=== PATIENT | female | born 1945 | race Two or more races ===

== ENCOUNTER 2018-01-18 05:04 | Inpatient (IN) | payer MEDICARE, OTHER ==
[~2018-01-18] VITALS: Ht 182.9 cm; Wt 89.8 kg
[2018-01-18] VITALS (11 sets, daily range): BP systolic 129–169; BP diastolic 51–90
--- NOTE | 2018-01-18 05:25 | NUR ---
MS GANDHI ADMIN NOTE PT WAS ADMITTED FOR DAY SURGERY, LEFT TOTAL KNEE ARTHROPLASTY. PT AMBULATED TO FLOOR WITH STEADY GATE. CONSENTS TO BE SIGNED Addendum: 01/18/18 at 0656 by BEN PARRISH IV TO BE STARTED. PREOP ORDERS TO BE CARRIED OUT. PT IS A/O X4, ABLE TO MAKE NEEDS KNOWN. NO SIGNS OF SOB OR DISTRESS, BREATHING EVENLY AND UNLABORED ON RA. BP: 129/67 T:98.2 O2:97% HR:75. PT SCHEDULED FOR SURGERY AT 0630. WILL CONTINUE TO MONITOR PT
[2018-01-18] MEDS ORDERED: CELECOXIB 100 MG CAPSULE PO ONE (06:00)
[2018-01-18] MEDS ORDERED: ACETAMINOPHEN 325 MG TABLET PO ONE (06:00)
[2018-01-18] MEDS ORDERED: oxyCODONE HCL SR 10MG TAB.SR.12H PO ONE (06:00)
[2018-01-18] MEDS ORDERED: ANESTHESIA TRAY IN PYXIS 1 EA TRAY MC ONE (06:02)
[2018-01-18] MEDS ORDERED: KETOROLAC TROMETHAMINE INJ 30 MG/ML VIAL ONE (06:02)
[2018-01-18] MEDS ORDERED: BACITRACIN 50000 UNITS/VIAL ONE (06:03)
--- NOTE | 2018-01-18 06:18 | NUR ---
MS RN NOTE PT WAS TAKEN DOWN TO SURGERY. IV ACCESS ON RFA #22, CONSENTS WERE SIGNED, PREOP MEDS WERE GIVEN. WILL ENDORSE TO DAYSHIFT
[2018-01-18] MEDS ORDERED: MORPHINE SULFATE/PF 10 MG/10ML (1MG/ML) AMPUL ONE (06:23)
[2018-01-18] MEDS ORDERED: BUPIVACAINE MPF 0.75% 30 ML VIAL ONE (06:50)
[2018-01-18] MEDS ORDERED: LIDOCAINE 2% 50 ML MDV IJ ONE (06:52)
[2018-01-18] MEDS ORDERED: FENTANYL PF 100MCG/2ML AMPUL ONE (06:58)
[2018-01-18] MEDS ORDERED: MIDAZOLAM HCL 2 MG/2ML VIAL ONE (07:02)
--- NOTE | 2018-01-18 07:15 | NUR ---
RN NOTES PATIENT IS CURRENTLY IN OR FOR A PROCEDURE
[2018-01-18] MEDS ORDERED: ROCURONIUM BROMIDE 50 MG/5 ML ONE (07:51)
[2018-01-18] MEDS ORDERED: TRANEXAMIC ACID 3,000 MG in SODIUM CHLORIDE IRRIG SOLUTION 70 ML IR ONE (08:00)
[2018-01-18] MEDS ORDERED: HYDROCODONE/APAP 5/325MG 1 EACH TABLET PO PRN (09:30)
[2018-01-18] MEDS ORDERED: DULCOLAX 10 MG/SUPP.RECT RC PRN (09:30)
[2018-01-18] MEDS ORDERED: AMBIEN 5 MG TABLET PO PRN (09:30)
[2018-01-18] MEDS ORDERED: COLACE 250 MG CAPSULE PO PRN (09:30)
[2018-01-18] MEDS ORDERED: ZOFRAN 4mg/2ML IV PRN (09:30)
[2018-01-18] MEDS ORDERED: TYLENOL 650 MG TABLET PO PRN (09:30)
[2018-01-18] MEDS ORDERED: SENOKOT 8.6 MG TABLET PO PRN (09:30)
[2018-01-18] MEDS ORDERED: LABETALOL HCL IV 100MG VIAL ONE (09:42)
--- NOTE | 2018-01-18 10:15 | NUR ---
RN NOTES PATIENT A/OX3, VERBALLY RESPONSIVE, BREATHING EVEN AND UNLABORED, NO DISTRESS NOTED. LEFT LOWER EXTREMITY COVERED WITH GAUZE AT THIS TIME, NO S/SX OF BLEEDING AT THIS TIME. KEPT PATIENT COMFORTABLE, PATIENT DENIES PAIN AT THIS TIME. VITAL SIGNS WILL BE MONITORED. CALL LIGHT WITHIN REACH, WILL CONTINUE TO MONITOR.
--- NOTE | 2018-01-18 10:30 | NUR ---
RN NOTES PATIENT ALLOWED LIMITED ASSESSMENT DUE TO POST OP SURGERY OF LEFT KNEE. PER PATIENT, I JUST WANT TO REST RIGHT NOW. NO S/SX OF SKIN BREAKDOWN AT THIS TIME. WILL CONTINUE TO MONITOR.
[2018-01-18] MEDS: IV D5/0.45 NACL 1,000 ML IV PRN ×3 (10:38→21:28)
[2018-01-18] MEDS ORDERED: MENTHOL/CETYLPYRD (CEPACOL) 1 LOZ LOZENGE MM PRN (12:00)
[2018-01-18] MEDS ORDERED: HYDROMORPHONE MDV 30 MG in IV NS 0.9% 15 ML, PCA TOTAL VOLUME 1 BAG IV PRN ×3 (12:00)
[2018-01-18] MEDS ORDERED: MORPHINE SULFATE INJ 2 MG/ML DISP.SYRIN IV PRN (12:00)
[2018-01-18] MEDS ORDERED: HYDROCODONE/APAP 10/325MG 1 EA TABLET PO PRN (12:00)
--- NOTE | 2018-01-18 12:17 | NUR ---
RN NOTES PROJECT SAFETY MANAGER PUMP STARTED, VERIFIED BY 2 RN'S.
[2018-01-18] MEDS ORDERED: NALOXONE HCL 0.4 MG/ML AMPUL IV PRN (13:00)
--- NOTE | 2018-01-18 13:36 | NUR ---
RN NOTES PATIENT A/OX4, VERBALLY RESPONSIVE, PATIENT VERBALIZED UNDERSTANDING OF HOW TO USE THE AUTO POLISHER PUMP, AUTO POLISHER PUMP CHECKED AT THIS TIME WITH 0 DOSE GIVEN, PER PATIENT, I DON'T NEED IT RIGHT NOW, I'M NOT IN PAIN. O2 SAT MONITORED CONTINUOUSLY, NO RESPIRATORY DISTRESS NOTED. WILL CONTINUE TO MONITOR.
[2018-01-18] MEDS ORDERED: METH2.5T PO (14:53)
[2018-01-18] MEDS ORDERED: WARF1TAB86 PO (14:53)
[2018-01-18] MEDS ORDERED: FOLI1TAB16 PO (14:53)
[2018-01-18] MEDS ORDERED: LISI10TA5 PO (14:53)
[2018-01-18] MEDS ORDERED: DIGO250T PO (14:53)
[2018-01-18] MEDS ORDERED: BUPR-51 PO (14:53)
[2018-01-18] MEDS ORDERED: GLYB1TAB2 PO (14:53)
[2018-01-18] MEDS ORDERED: ATEN25TA PO (14:53)
[2018-01-18] MEDS ORDERED: PRAV20TA4 PO (14:53)
[2018-01-18] MEDS ORDERED: MAGNESIUM HYDROXIDE 30 ML UDC PO PRN (15:00)
[2018-01-18] MEDS ORDERED: PROMETHAZINE HCL 25 MG/ML AMPUL IM PRN (15:00)
[2018-01-18] MEDS ORDERED: ACETAMINOPHEN W/ CODEINE#3 1 EA TABLET PO PRN (15:00)
[2018-01-18] MEDS ORDERED: BISACODYL SUPP (10 MG) 10 MG/SUPP.RECT SUPP.RECT RC PRN (15:00)
[2018-01-18] MEDS ORDERED: diphenhydrAMINE HCL 25 MG CAPSULE PO PRN (15:00)
[2018-01-18] MEDS ORDERED: MAG HYDROX/AL HYDROX/SIMETH 30 ML UDC PO PRN (15:00)
[2018-01-18] MEDS: ANCEF 1 G in IV D5W 50 ML IV SCH (15:55)
[2018-01-18] MEDS: DOCUSATE SODIUM 100 MG CAPSULE PO SCH (17:12)
--- NOTE | 2018-01-18 18:39 | NUR ---
RN NOTES PATIENT A/OX4, VERBALLY RESPONSIVE, BREATHING EVEN AND UNLABORED, SPO2 98% IN 3LPM VIA NC, NO DISTRESS NOTED, PATIENT TOLERATED CPM MACHINE X4 HOURS. PATIENT DENIES PAIN AT THIS TIME, PL SQL PROGRAMMER -DILAUDID READILY AVAILABLE BUT PATIENT THINKS ITS TOO STRONG FOR HER, INFORMED PATIENT OF OTHER PAIN MEDICATIONS FOR PAIN, PATIENT VERBALIZED UNDERSTANDING. PATIENT RECEIVED A TOTAL OF 0.2MG DOSE OF DILAUDID PL SQL PROGRAMMER, ATTEMPTED 0, VOLUME LEFT IN THE CONTAINER IS 29.8ML. CALL LIGHT WITHIN REACH, WILL ENDORSED TO GROCERY SPECIALIST FOR ALEXA.
--- NOTE | 2018-01-18 19:10 | NUR ---
MS RN OPENING NOTES: PATIENT IN BED, AOX4, ON O2 AT 2 LPM VIA NC, BREATHING EVEN AND UNLABORED. BREATH SOUNDS CLEAR TO AUSCULTATION. APPEARS CALM AND IN NO DISTRESS. DENIES PAIN AT THIS TIME, AND EVEN STATES THAT HE DOES NOT WANT TO PRESS THE JAVA SYBASE DEVELOPER PUMP FOR NOW. NOTED PIV OVER RFA G 22 INTACT AND INFUSING WELL WITH IVF OF D5 1/2 NS RUNNING AT 125 ML/HR. PATIENT ALSO HAS JAVA SYBASE DEVELOPER OF DILAUDID 15 ML + 15 ML NS (1 MG/ML CONCENTRATION), NOTED THAT AT THIS TIME, ONLY 0.2 MG HAS BEEN INFUSED. LEFT KNEE WITH CLEAN AND INTACT DRESSING. PROVIDED FOR COMFORT AND SAFETY. ELEVATED HOB TO 45 DEG. INSTRUCTED ON INCENTIVE SPIROMETRY, WITH GOOD COMPLIANCE AND RECEPTIVE TO TEACHING. BED IN LOWEST NAD LOCKED POSITION, SIDERAILS UP X 3, CALL LIGHT WITHIN REACH. WILL CONT TO MONITOR.
--- NOTE | 2018-01-18 20:45 | NUR ---
RN NOTES: DR PIÑA AT BEDSIDE TO ASSESS PATIENT
[2018-01-18] MEDS: PANTOPRAZOLE 40 MG TABLET.DR PO SCH (21:26)
[2018-01-19] MEDS: ANCEF 1 G in IV D5W 50 ML IV SCH (00:17)
[2018-01-19] MEDS ORDERED: GLYB2.5T4 PO (05:47)
[2018-01-19] MEDS ORDERED: METF-440 PO (05:47)
[2018-01-19 06:31] LABS: HEMOGLOBIN 11.6 g/dL (11.5-14.8)
--- NOTE | 2018-01-19 07:05 | NUR ---
MS RN CLOSING NOTES: PATIENT IN BED, AOX4, ON O2 AT 2 LPM VIA NC, BREATHING EVEN AND UNLABORED. APPEARS CALM AND IN NO DISTRESS. DENIES PAIN OVER LEFT KNEE. ONLY USED COMMERCIAL TIRE SERVICE TECHNICIAN PUMP ONCE DURING SHIFT, ALSO DID NOT REQUEST FOR ANY PO PAIN MEDS. EDUCATION GIVEN RE PAIN MEDS. PIV OVER RFA G22 INTACT AND INFUSING WELL WITH D5 1/2 NS RUNNING AT 75 ML/HR. DUE MEDS GIVEN. PROVIDED FOR COMFORT AND SAFETY. BED IN LOWEST AND LOCKED POSITION, SIDERAILS UP X3, CALL LIGHT WITHIN REACH. WILL ENDORSE TO AM RN FOR ALEXA.
--- NOTE | 2018-01-19 07:30 | NUR ---
MS RN OPENING NOTES: PATIENT IN BED, AOX4, ON O2 AT 2 LPM VIA NC, BREATHING EVEN AND UNLABORED. APPEARS CALM AND IN NO DISTRESS. DENIES PAIN OVER LEFT KNEE. METAL CEILING HANGER PUMP USED PRN. PIV OVER RFA G22 INTACT AND INFUSING WELL WITH D5 1/2 NS RUNNING AT 75 ML/HR. KEPT CLEAN DRY AND COMFORTABLE SAFETY MEASURES IN PLACE. BED IN LOWEST AND LOCKED POSITION, SIDERAILS UP X3, CALL LIGHT WITHIN REACH. WILL CONTINUE TO MONITOR
[2018-01-19 08:00] VITALS: BP 140/63
[2018-01-19] MEDS ORDERED: ASPIRIN 325 MG TABLET PO SCH (09:00)
[2018-01-19] MEDS: DOCUSATE SODIUM 100 MG CAPSULE PO SCH ×2 (09:07→17:14)
[2018-01-19] MEDS: BUPROPION XL 150 MG TAB.ER.24 PO SCH (09:07)
[2018-01-19] MEDS: ATORVASTATIN 10 MG TABLET PO SCH (09:07)
[2018-01-19] MEDS: FOLIC ACID 1 MG TABLET PO SCH (09:07)
[2018-01-19] MEDS: ATENOLOL 25 MG TABLET PO SCH ×2 (09:08→17:00)
[2018-01-19] MEDS: LISINOPRIL (10MG) 10 MG TABLET PO SCH ×2 (09:08→18:02)
[2018-01-19] MEDS: DIGOXIN 0.25 MG TABLET PO SCH (12:48)
[2018-01-19 13:26] LABS: INR 1.04 (0.87-1.13)
[2018-01-19] MEDS ORDERED: ALPRAZOLAM 0.25 MG TABLET PO PRN (14:30)
[2018-01-19] MEDS: HYDROCODONE/APAP 10/325MG 1 EA TABLET PO PRN ×2 (14:58→20:30)
[2018-01-19] MEDS: IV D5/0.45 NACL 1,000 ML IV PRN (14:59)
[2018-01-19] MEDS: WARFARIN SODIUM 1 MG TABLET PO SCH (15:04)
[2018-01-19 16:00] VITALS: BP 106/60
--- NOTE | 2018-01-19 16:00 | NUR ---
RN NOTES CLARIFIED MULTIPLE MEDICATIONS REQUESTED BY PT AND FAMILY NEW ORDERS CARRIED OUT WILL CONTINUE TO MONITOR
--- NOTE | 2018-01-19 18:55 | NUR ---
MS RN CLOSING NOTES: PATIENT IN BED, AOX4, ON O2 AT 2 LPM VIA NC, BREATHING EVEN AND UNLABORED. APPEARS CALM AND IN NO DISTRESS. DENIES PAIN OVER LEFT KNEE. PIV OVER RFA G22 INTACT AND INFUSING WELL WITH D5 1/2 NS RUNNING AT 75 ML/HR. KEPT CLEAN DRY AND COMFORTABLE SAFETY MEASURES IN PLACE. BED IN LOWEST AND LOCKED POSITION, SIDERAILS UP X3, CALL LIGHT WITHIN REACH. WILL CONTINUE TO MONITOR AND ENDORSE TO NEXT SHIFT FOR CONTINUITY OF CARE
--- NOTE | 2018-01-19 19:35 | NUR ---
RN MS OPENING NOTES RECEIVED PATIENT IN BED AWAKE ALERT AND ORIENTED X 4 , ABLE TO MAKE NEEDS KNOWN, RESPIRATIONS EVEN AND UNLABORED, WITH EQUAL RISE AND FALL OF CHEST. NOTED DRESSING TO LEFT LEG INTACT AND DRY . IV SITE TO RIGHT FA #22 GAUGE INTACT AND PATENT , NO REDNESS , NO INFILTRATION PRESENT , IVF FLUIDS RUNNING ORDERED. DVT PUMP INTACT TO RIGHT LEG, CHENG CATHETER INTACT AND DRAINING WELL. URINE YELLOW , CLEAR. PATIENT REPOSITIONED FOR COMFORT, ORIENTED TO STAFF AND CALL LIGHT , CALL LIGHT KEPT WITHIN REACH , ALL NEEDS ATTENDED AT THIS TIME WILL CONTINUE TO MONITOR. PATIENT REMAINS COMFORTABLE AT THIS TIME. PER DR. BELTRÁN NEW ORDER FOR MODERATE INSULIN SLIDING SCALE.
[2018-01-19 20:00] VITALS: BP 108/82
[2018-01-19 20:19] VITALS: BP 108/82
[2018-01-19] MEDS ORDERED: DEXTROSE 50%-WATER 50 ML DISP.SYRIN IV PRN (20:30)
--- NOTE | 2018-01-19 21:56 | NUR ---
RN MS NOTES NON PHARMACOLOGICAL INTERVENTIONS PROVIDED, REPOSITIONED AND APPLIED ICE, PATIENT WILL TRY NONPHARMACOLOGICAL INTERVENTIONS FOR NOW.
[2018-01-19] MEDS: BLOOD SUGAR DIAGNOSTIC 1 EACH STRIP VI SCH (22:00)
[2018-01-19] MEDS: PANTOPRAZOLE 40 MG TABLET.DR PO SCH (22:00)
--- NOTE | 2018-01-19 22:59 | NUR ---
rn ms notes nonpharmacological ice intervention effective, patient stated"it was helpful". report given to rn taking over patient care left in stable condition, all needs attended.
[2018-01-19] MEDS ORDERED: HYDROCODONE/APAP 5/325MG 1 EACH TABLET PO PRN (23:30)
--- NOTE | 2018-01-19 23:32 | NUR ---
KASANDRA PIÑA AT BEDSIDE.
[2018-01-19] MEDS ORDERED: HYDROCODONE/APAP 10/325MG 1 EA TABLET PO ONE (23:39)
--- NOTE | 2018-01-19 23:59 | NUR ---
MSRN ORDERS RECEIVED FROM DR. IPÑA. 1 TAB OF NORCO 10/325MG TAB PO ADMINISTERED. BEDREST FOR NOW. REMINDED TO CALL STAFF FOR ANY ASSISTANCE OR FURTHER DISCOMFORT.. CALL LIGHT WITHIN REACH. Addendum: 01/20/18 at 0001 by RACHNA OWOD RN UNABLE TO SCAN NORCO 10/325 . MED ADMINISTERED ORDERED.
[2018-01-20] MEDS ORDERED: HYDROMORPHONE 1 MG/1 ML DISP.SYRIN SQ PRN
--- NOTE | 2018-01-20 | NUR ---
MSRN PENDING RANDOM GLUCOSE
[2018-01-20] MEDS: HYDROCODONE/APAP 10/325MG 1 EA TABLET PO PRN ×4 (04:28→22:20)
[2018-01-20] MEDS: IV D5/0.45 NACL 1,000 ML IV PRN (04:28)
--- NOTE | 2018-01-20 04:31 | NUR ---
MSRN AWAKENED , MILD PAIN STATED 3 TO 4 LEVEL. REQUESTED NORCO, ADMINISTERED. KEPT COMFORTABLE
--- NOTE | 2018-01-20 07:10 | NUR ---
MSRN SLEEPING OF THIS TIME, GLUCOSE RANDOM RESULT PENDING.
--- NOTE | 2018-01-20 07:14 | NUR ---
MS RN OPENING NOTE RECEIVED BEDSIDE SBAR REPORT ON THE [id number]. PATIENT IS A/O X4, AWAKE AND RESPONSIVE IN BED. BED IS LOCKED IN LOWEST POSITION, SIDE RAILS UP X2, BED ALARM IS ON. CALL LIGHT WITHIN REACH. PATIENT EDUCATED TO USE THE CALL LIGHT FOR ASSISTANCE AND VERBALIZED UNDERSTANDING. CHENG CATHETER INTACT. PATIENT REFUSED FOR THE CHENG TO BE REMOVED NOW STATING SHE THINKS SHE IS NOT READY YET TO USE THE BEDSIDE COMMODE AND SHE CANNOT USE THE BEDPAN. DR BELTRÁN INFORMED. VERBAL ORDER FOR CHENG REMOVAL OBTAINED. ALL NEEDS ARE MET. WILL CONTINUE TO ASSESS/MONITOR THROUGHOUT THE SHIFT.
[2018-01-20] MEDS: BLOOD SUGAR DIAGNOSTIC 1 EACH STRIP VI SCH ×4 (07:30→22:06)
[2018-01-20 08:00] VITALS: BP 123/56
[2018-01-20] MEDS: DOCUSATE SODIUM 100 MG CAPSULE PO SCH ×2 (09:01→16:19)
[2018-01-20] MEDS: ATORVASTATIN 10 MG TABLET PO SCH (09:01)
[2018-01-20] MEDS: LISINOPRIL (10MG) 10 MG TABLET PO SCH ×2 (09:02→16:21)
[2018-01-20] MEDS: BUPROPION XL 150 MG TAB.ER.24 PO SCH (09:02)
[2018-01-20] MEDS: FOLIC ACID 1 MG TABLET PO SCH (09:03)
[2018-01-20] MEDS: ATENOLOL 25 MG TABLET PO SCH ×2 (09:03→16:20)
--- NOTE | 2018-01-20 09:23 | NUR ---
UNABLE TO COMPLETE FINGERSTICK BLOOD GLUCOSE TEST DUE TO UNAVAILABILITY OF THE GLUCOMETER. RANDOM BG TEST IS ORDERED. READING 306MG/DL. PATIENT REFUSED INSULIN COVERAGE AT THIS TIME AND STATED THAT SHE WANTS HER D5W IV TO BE STOPPED FOR SEVERAL HOURS BEFORE RE-CHECKING THE BS AGAIN. RISKS AND BENEFITS DISCUSSED WITH THE PATIENT. IV STOPPED FOR NOW. INSULIN NOT ADMINISTERED.
--- NOTE | 2018-01-20 09:24 | NUR ---
Patient complained of pain in left knee. norco administered as ordered.
--- NOTE | 2018-01-20 10:11 | NUR ---
Ambulated with PT
[2018-01-20] MEDS ORDERED: HYDR-552 PO (11:35)
[2018-01-20] MEDS: WARFARIN SODIUM 1 MG TABLET PO SCH (12:38)
[2018-01-20] MEDS: DIGOXIN 0.25 MG TABLET PO SCH (12:40)
[2018-01-20] MEDS: *INSULIN REGULAR(HUMULIN R)HUM 100 UNIT/ML VIAL SQ PRN ×3 (12:45→22:13)
[2018-01-20 16:00] VITALS: BP 135/65
--- NOTE | 2018-01-20 19:03 | NUR ---
MS RN CLOSING NOTE PATIENT IS A/O X4, AWAKE AND RESPONSIVE IN BED. BED IS LOCKED IN LOWEST POSITION, SIDE RAILS UP X2, BED ALARM IS ON. CPM MACHINE IS OFF AT THE BEDSIDE. CALL LIGHT WITHIN REACH. PATIENT EDUCATED TO USE THE CALL LIGHT FOR ASSISTANCE AND VERBALIZED UNDERSTANDING. DENIES PAIN/DISCOMFORT AT THIS TIME. CHENG CATHETER INTACT. PATIENT REFUSED FOR THE CHENG TO BE REMOVED NOW STATING SHE THINKS SHE IS NOT READY YET TO USE THE BEDSIDE COMMODE AND SHE CANNOT USE THE BEDPAN. DR BELTRÁN INFORMED. CHARGE NURSE INFORMED. VERBAL ORDER FOR CHENG RENEWAL OBTAINED. ALL NEEDS ARE MET. WILL ENDORSE TO THE HI LO DRIVER NURSE FOR ALEXA.
--- NOTE | 2018-01-20 19:30 | NUR ---
RN NOTES RECEIVED PT. AWAKE ON BED, A/OX3, DRESSING ON THE LEFT KNEE DRY AND INTACT, F/C DRAINING CLEAR YELLOW URINE, DENIES PAIN, NO SOB, CALL LIGHT WITHIN REACH, SIDERIALSUPX2, WILL CONTINUE TO MONITOR
[2018-01-20 20:00] VITALS: BP_SYST 117; BP_SYST 148; BP_DIAS 54; BP_DIAS 81
[2018-01-20] MEDS: PANTOPRAZOLE 40 MG TABLET.DR PO SCH ×2 (22:00→22:05)
--- NOTE | 2018-01-20 22:23 | NUR ---
RN NOTES COMPLAINED OF LEFT KNEE PAIN- NOROC 10/325MG PO GIVEN ORDERED, V/S STABLE
--- NOTE | 2018-01-21 06:36 | NUR ---
RN NOTES AWAKE, DENIES PAIN, NO SOB, DRESSING ON THE LEFT KNEE DRY AND INTACT,C ALL LIGHT WITHIN REACH, SIDERAILSUPX2, PT. NEEDS ATTENDED
[2018-01-21] MEDS: INSULIN REGULAR, HUMAN 100 UNIT/ML 3 ML VIAL SQ PRN ×2 (06:47→11:31)
[2018-01-21] MEDS: HYDROCODONE/APAP 10/325MG 1 EA TABLET PO PRN ×3 (06:52→15:29)
--- NOTE | 2018-01-21 06:54 | NUR ---
RN NOTES COMPLAINED OF LEFT KNEE PAIN-NORCO 10/325MG PO GIVEN ORDERED, V/S STABLE
--- NOTE | 2018-01-21 07:50 | NUR ---
MS RN OPENING NOTES RECEIVED PT LAYING IN BED WITH HOB ELEVATED. AWAKE AND RESPONSIVE. RESPIRATIONS ARE EVEN AND UNLABORED. DENIES ANY PAIN,SOB, N/V. IV SITE INTACT, NO INFILTRATION NOTED. DRESSING KEPT CLEAN AND DRY. SAFETY MEASURES ARE IN PLACE. INSTRUCTED PT TO USE CALL LIGHT WHEN ASSISTANCE IS NEEDED, CALL LIGHT IS LEFT WITHIN REACH. WILL CONTINUE TO MONITOR THROUGHOUT SHIFT.
[2018-01-21 08:00] VITALS: BP 144/60
[2018-01-21] MEDS: FOLIC ACID 1 MG TABLET PO SCH (08:23)
[2018-01-21] MEDS: BLOOD SUGAR DIAGNOSTIC 1 EACH STRIP VI SCH ×2 (08:23→11:28)
[2018-01-21] MEDS: LISINOPRIL (10MG) 10 MG TABLET PO SCH (08:23)
[2018-01-21 08:24] VITALS: BP 144/60
[2018-01-21] MEDS: DOCUSATE SODIUM 100 MG CAPSULE PO SCH (08:24)
[2018-01-21] MEDS: BUPROPION XL 150 MG TAB.ER.24 PO SCH (08:24)
[2018-01-21] MEDS: ATENOLOL 25 MG TABLET PO SCH (08:24)
[2018-01-21] MEDS: ATORVASTATIN 10 MG TABLET PO SCH (08:24)
[2018-01-21] MEDS ORDERED: METFORMIN 500 MG TABLET PO SCH (09:00)
[2018-01-21] MEDS ORDERED: glyBURIDE 1.25 MG TABLET PO SCH (09:00)
[2018-01-21 10:12] LABS: INR 1.4 (0.87-1.13)
--- NOTE | 2018-01-21 11:20 | NUR ---
MS RN NOTES NOTIFIED DR. BELTRÁN THAT PHARMACY DOES NOT HAVE GLYBURIDE MEDICATION. PER DR. BELTRÁN, "THE INSULIN SLIDING SCALE IS FINE." AND TO CONTINUE COUMADIN 6MG FOR INR 1.4. PT MADE AWARE.
[2018-01-21] MEDS: DIGOXIN 0.25 MG TABLET PO SCH (12:42)
[2018-01-21] MEDS: WARFARIN SODIUM 1 MG TABLET PO SCH (12:44)
--- NOTE | 2018-01-21 16:00 | NUR ---
WILDLIFE BIOSTATION RESEARCH ECOLOGIST NOTE PT DISCHARGED TO [facility] IN STABLE CONDITION ACCOMPANIED BY AMBULANCE VIA GURNEY. ALERT, AWAKE AND RESPONSIVE. RESPIRATIONS ARE EVEN AND UNLABORED, NOT IN ANY ACUTE DISTRESS NOTED. NORCO 1 TAB GIVEN FOR PAIN TO LEFT KNEE D/T S/P LEFT KNEE ARTHROPLASTY. CHENG CATH REMOVED AND TOLERATED WELL. IV SITE REMOVED, APPLIED PRESSURE AND TOLERATED WELL. NAME BANDS REMOVED. ALL BELONGINGS TAKEN WITH PT. PT UNDRSTANDS AND SIGNED DISCHARGE PAPERWORK. PT LEFT 1600 IN STABLE CONDITION.
== END 2018-01-21 16:00 | DRG 470 ==
LOC: DS 05:04 → MED 05:06
PROVIDERS: ADMIT Specialist; ATTEND Specialist
PROC: 0SRD0J9 Replacement of Left Knee Joint with Synthetic Substitute, Cemented, Open Approach (ICD-10-PCS; principal; 2018-01-18 06:30)
DX: M17.12 Unilateral primary osteoarthritis, left knee (principal); E11.9 Type 2 diabetes mellitus without complications; I10 Essential (primary) hypertension; E03.9 Hypothyroidism, unspecified; I25.10 Atherosclerotic heart disease of native coronary artery without angina pectoris; J45.909 Unspecified asthma, uncomplicated; E78.5 Hyperlipidemia, unspecified; M06.9 Rheumatoid arthritis, unspecified; E66.01 Morbid (severe) obesity due to excess calories; I65.29 Occlusion and stenosis of unspecified carotid artery; Z79.01 Long term (current) use of anticoagulants; I48.0 Paroxysmal atrial fibrillation; Z95.0 Presence of cardiac pacemaker; M81.0 Age-related osteoporosis without current pathological fracture; Z68.26 Body mass index [BMI] 26.0-26.9, adult; F32.9 Major depressive disorder, single episode, unspecified; I49.5 Sick sinus syndrome
CPT/HCPCS: 36415; 80162-TC; 82945-TC; 82962-TC; 85027-TC; 85610-TC; 86850-TC; 87081-TC; 88305-TC; 88311-TC; 97110-TC; 97116-TC; 97530-TC; A4216; A4217; A4606; A6402; C1713; J0690; J1170; J1815; J1885; J2250; J2274; J2710; J3010; J3490; J7060

== ENCOUNTER 2019-01-03 05:12 | Inpatient (IN) | payer MEDICARE, OTHER ==
[~2019-01-03] VITALS: Ht 182.9 cm; Wt 93.0 kg
[2019-01-03] VITALS (17 sets, daily range): BP systolic 123–148; BP diastolic 50–86
[~2019-01-03 05:12] MED LIST: ATEN25TA PO; BUPR-51 PO; DIGO250T PO; FOLI1TAB16 PO; GLYB1TAB2 PO; HYDR-4384 PO; LISI10TA5 PO; METH2.5T PO; PRAV20TA4 PO; WARF1TAB86 PO
[2019-01-03] MEDS ORDERED: ANESTHESIA TRAY IN PYXIS 1 EA TRAY MC ONE (05:58)
[2019-01-03] MEDS ORDERED: BACITRACIN 50000 UNITS/VIAL ONE (05:58)
[2019-01-03] MEDS ORDERED: BUPIVACAINE MPF 0.5% W/EPI INJ 30 ML VIAL ONE (05:58)
[2019-01-03] MEDS ORDERED: MIDAZOLAM HCL 2 MG/2ML VIAL ONE (06:37)
[2019-01-03] MEDS ORDERED: FENTANYL PF 100MCG/2ML AMPUL ONE ×2 (06:37→06:38)
[2019-01-03] MEDS ORDERED: SEVOFLURANE 250 ML BOTTLE IH ONE (06:39)
[2019-01-03] MEDS ORDERED: BUPIVACAINE 0.5 % PF 150 MG/30 ML VIAL ONE (07:32)
[2019-01-03] MEDS ORDERED: HYDROMORPHONE 1 MG/1 ML DISP.SYRIN ONE (08:29)
--- NOTE | 2019-01-03 10:09 | NUR ---
MS RN ADMITTING NOTES PATIENT ADMITTED TO UNIT AT 0850 VIA BED S/P ARTHROTOMY OF LEFT KNEE ARTHROTOMY WITH SUBCUTANEOUS LATERAL RELEASE WITH MEDIAL PATELLOFEMORAL LIGAMENT RECONSTRUCTION ACCOMPANIED BY RECOVERY NURSE. AWAKE, ALERT AND ORIENTED X4. ABLE TO MAKE NEEDS KNOWN, DENIES PAIN OR DISCOMFORTS VOICED DURING ADMISSION. PT ORIENTED TO STAFF AND ROOM. ON 02 VIA N/C AT 2LPM, TOLERATING WELL WITH NO ACUTE DISTRESS NOTED. V/S TAKEN AND RECORDED. PT WITH DRESSING IN PLACE TO LEFT KNEE WRAPPED WITH DELVIN BANDAGE AND WITH KNEE IMMOBILIZER, NO ACTIVE BLEEDING NOTED. MD ONLY TO REMOVE DRESSINGS. PT WITH IV ACCESS INTACT AND PATENT TO LEFT WRIST G#20. SAFETY MEASURE INITIATED. BED PLACED IN LOW LOCKED POSITION WITH SR UP X2. CALL LIGHT WITHIN REACH. ALL POST OP ORDERS CARRIED OUT. WILL CONTINUE TO MONITOR PT ACCORDINGLY.
[2019-01-03] MEDS ORDERED: METF500S7 PO (13:21)
[2019-01-03] MEDS ORDERED: LEVO25TA7 PO (13:21)
[2019-01-03] MEDS ORDERED: ALPR0.25 PO (13:21)
[2019-01-03] MEDS ORDERED: NITR100C15 PO (13:21)
[2019-01-03] MEDS ORDERED: LISI10TA5 PO (13:23)
[2019-01-03] MEDS ORDERED: PRAV20TA4 PO (13:23)
[2019-01-03] MEDS ORDERED: GLIP2.5T3 PO (13:23)
[2019-01-03] MEDS ORDERED: DEXTROSE 50%-WATER 50 ML DISP.SYRIN IV PRN (16:30)
[2019-01-03] MEDS ORDERED: WARFARIN SODIUM 2 MG TABLET PO SCH (17:00)
[2019-01-03] MEDS: INSULIN REGULAR, HUMAN 100 UNIT/ML 3 ML VIAL SQ PRN ×2 (17:32→22:23)
[2019-01-03] MEDS: BLOOD SUGAR DIAGNOSTIC 1 EACH STRIP IN SCH ×2 (17:32→22:24)
[2019-01-03] MEDS: METFORMIN 500 MG TABLET PO SCH (17:34)
[2019-01-03] MEDS: ATENOLOL 25 MG TABLET PO SCH (17:35)
--- NOTE | 2019-01-03 18:47 | NUR ---
MS RN CLOSING NOTES PATIENT IN BED A/O X4, ADMITTED EARLIER TODAY FOLLOWING S/P LEFT KNEE ARTHROTOMY WITH SUBCUTANEOUS LATERAL RELEASE WITH MEDIAL PATELLOFEMORAL LIGAMENT RECONSTRUCTION. PATIENT IS ABLE TO MAKE NEEDS KNOWN, DENIED PAIN OR DISCOMFORT THROUGHOUT SHIFT. PT CURRENTLY ON ROOM AIR, TOLERATING WELL WITH NO ACUTE DISTRESS NOTED. PT WITH DRESSING IN PLACE TO LEFT KNEE WRAPPED WITH DELVIN BANDAGE AND WITH KNEE IMMOBILIZER, NO ACTIVE BLEEDING NOTED. MD ONLY TO REMOVE DRESSINGS. PT WITH IV ACCESS INTACT AND PATENT TO LEFT WRIST G#20. SAFETY MEASURE MAINTAINED DURING DURATION OF SHIFT. BED PLACED IN LOW LOCKED POSITION WITH SR UP X2. CALL LIGHT WITHIN REACH. MEDICATIONS RECONCILED BY MD AND ADMINISTERED ORDERED. PLAN TO DISCHARGE TOMORROW. WILL ENDORSE TO MEDIA SERVICES DIRECTOR NURSE FOR ALEXA.
--- NOTE | 2019-01-03 19:25 | NUR ---
MSRN FULLY AWAKE, NO NEEDS FOR NOW, STATED JUST USED BSC VOIDED FREELY FEW MINS AGO. LEFT LEG IMMOBILIZER MAINTAINED, REMINDED TO CALL STAFF FOR ANY ASSISTANCE OR FURTHER DISCOMFORTS. SAFETY PRECAUTIONS EMPHASIZED, WELL UNDERSTOOD. CLOSELY WATCHED.
[2019-01-03] MEDS ORDERED: ALPRAZOLAM 0.25 MG TABLET PO SCH (22:00)
--- NOTE | 2019-01-03 22:00 | NUR ---
MSRN BS WAS 214 COVERED WITH 4 UNITS OF REGULAR INSULIN SQ PER SLIDING SCALE.
--- NOTE | 2019-01-03 22:15 | NUR ---
RN HAD HER OWN SNACKS.
[2019-01-03] MEDS: HYDROCODONE/APAP 10/325MG 1 EA TABLET PO PRN (23:42)
--- NOTE | 2019-01-03 23:49 | NUR ---
MSRN VERBALIZES PAIN ON LEFT KNEE ON SLIGHT MOVEMENT, NORCO 1 TAB PO ADMINISTERED.
--- NOTE | 2019-01-04 06:00 | NUR ---
MSRN BS WAS 190, AGREED FOR INSULIN COVERAGE. EAGER TO GO HOME TODAY. ALL NEEDS ATTENDED.
[2019-01-04 06:37] LABS: BASOPHILS % (AUTO) 0.1 % (0.0-2.0); EOSINOPHILS % (AUTO) 0.1 % (0.0-6.0); HEMATOCRIT 32 % (33-45); HEMOGLOBIN 10.7 g/dL (11.5-14.8); LYMPHOCYTES % (AUTO) 10.5 % (20.0-44.0); MEAN CORPUSCULAR HGB CONC 34 g/dl (31.0-36.0); MEAN CORPUSCULAR VOLUME 96 fL (82-100); MONOCYTES # (AUTO) 0.4 /CMM (0.1-1.30); NEUTROPHILS # (AUTO) 8.3 /CMM (1.8-8.9); NEUTROPHILS % (AUTO) 85.3 % (43.0-81.0); PLATELET COUNT (AUTO) 168 /CMM (150-450); WHITE BLOOD COUNT (AUTO) 9.7 K/uL (4.3-11.0)
[2019-01-04 06:49] LABS: CALCIUM, SERUM 8.3 mg/dL (8.5-10.1); CARBON DIOXIDE 24 mmol/L (21-32); CHLORIDE 104 mmol/L (98-107); CREATININE 0.8 mg/dL (0.6-1.3); GLUCOSE 212 mg/dL (74-106); MAGNESIUM 1.8 mg/dL (1.8-2.4); PHOSPHORUS 3.3 mg/dL (2.5-4.9); POTASSIUM 4.3 mmol/L (3.5-5.1); SODIUM SERUM 139 mmol/L (136-145); UREA NITROGEN, BLOOD 18 mg/dL (7-18)
[2019-01-04] MEDS: INSULIN REGULAR, HUMAN 100 UNIT/ML 3 ML VIAL SQ PRN ×2 (07:07→12:11)
[2019-01-04] MEDS: BLOOD SUGAR DIAGNOSTIC 1 EACH STRIP IN SCH ×2 (07:08→11:45)
--- NOTE | 2019-01-04 07:28 | NUR ---
MS/RN OPENING NOTE PATIENT IN BED IN STABLE CONDITION. A/O X 4. NO SIGNS OF ACUTE DISTRESS. NO COMPLAIN OF PAIN OR DISCOMFORT. NO IV ACCESS, PER FLAG DECORATOR RN, PATIENT REFUSED IV ACCESS. ALL NEEDS ATTENDED TO AT THIS TIME. CALL LIGHT WITHIN REACH. WILL CONTINUE TO MONITOR TO ENSURE SAFETY.
[2019-01-04] MEDS ORDERED: LEVOTHYROXINE SODIUM 25 MCG TABLET PO SCH (07:30)
[2019-01-04 08:00] VITALS: BP 108/54
[2019-01-04] MEDS: ATENOLOL 25 MG TABLET PO SCH (08:29)
[2019-01-04] MEDS: METFORMIN 500 MG TABLET PO SCH (08:29)
[2019-01-04 08:30] VITALS: BP 108/59
[2019-01-04] MEDS ORDERED: glipiZIDE XL 2.5 MG TAB.OSM.24 PO SCH (09:00)
[2019-01-04] MEDS ORDERED: ATORVASTATIN 10 MG TABLET PO SCH (09:00)
[2019-01-04] MEDS ORDERED: LISINOPRIL (10MG) 10 MG TABLET PO SCH (09:00)
[2019-01-04] MEDS ORDERED: FOLIC ACID 1 MG TABLET PO SCH (09:00)
[2019-01-04] MEDS: HYDROCODONE/APAP 10/325MG 1 EA TABLET PO PRN (12:24)
--- NOTE | 2019-01-04 13:08 | NUR ---
MS/NAIL MACHINE OPERATOR PATIENT DISCHARGE HOME IN STABLE CONDITION. A/O X 4. NO SIGNS OF ACUTE DISTRESS. NO COMPLAIN OF PAIN OR DISCOMFORT. DISCHARGE EDUCATION AND TEACHINGS PROVIDED. MADE AWARE TO FOLLOW UP WITH PRIMARY PHYSICIAN WITHIN A WEEK. FOLLOW UP WITH DR CHENCHO RICHEY WITHIN 2 WEEKS, PER PATIENT, SHE HAVE APPT SCHEDULED ON December. MADE AWARE TO NO BEND LEFT KNEE, KEEP KNEE IMMOBILIZER ON AT ALL TIMES, NO DRESSING CHANGE. IN CASE OF EMERGENCY PLEASE CALL 911 OR GO TO YOUR NEAREST ER. CONTINUE TO TAKE MEDICATIONS ORDERED. VERBALIZED UNDERSTANDING OF TEACHINGS PROVIDED. NAME BAND REMOVED, NO IV ACCESS. ALL NEEDS ATTENDED TO. LEFT IN STABLE CONDITION VIA PRIVATE CARE ACCOMPANIED BY VILLA.
[2019-01-09] MEDS ORDERED: METHOTREXATE SODIUM (2.5MG) 2.5 MG TABLET PO SCH (09:00)
== END 2019-01-04 13:00 | disposition home or self-care (01) | DRG 516 ==
LOC: DS 05:12 → MED 09:10
PROVIDERS: ADMIT Specialist
PROC: 0MU Bursae and Ligaments, Supplement (ICD-10-PCS; principal; 2019-01-03)
DX: M22.02 Recurrent dislocation of patella, left knee (principal); D68.59 Other primary thrombophilia; I25.10 Atherosclerotic heart disease of native coronary artery without angina pectoris; I48.91 Unspecified atrial fibrillation; E03.9 Hypothyroidism, unspecified; E11.65 Type 2 diabetes mellitus with hyperglycemia; Z79.01 Long term (current) use of anticoagulants; Z79.899 Other long term (current) drug therapy; Z79.84 Long term (current) use of oral hypoglycemic drugs; Z96.652 Presence of left artificial knee joint; Z95.0 Presence of cardiac pacemaker; I10 Essential (primary) hypertension; E78.5 Hyperlipidemia, unspecified; M19.90 Unspecified osteoarthritis, unspecified site; M65.9 Synovitis and tenosynovitis, unspecified; K66.0 Peritoneal adhesions (postprocedural) (postinfection)
CPT/HCPCS: 36415; 80048-TC; 82962-TC; 83735-TC; 84100-TC; 85025-TC; 85610-TC; 85730-TC; 87081-TC; 97116-TC; 97530-TC; G0378; J0330; J0690; J1100; J1170; J1815; J1885; J2250; J2370; J2704; J3010; J3490